=== PATIENT | female | born 1965 | race African-American/Black ===

== ENCOUNTER 2020-10-23 17:05 | Emergency (ER) | payer OTHER ==
[2020-10-23 17:46] LABS: BASOPHIL 0.6 % (0-2); EOSINOPHIL 1.7 % (0-5); HGB 13.3 g/dl (12.5-16.0); LYMPHOCYTE 28.6 % (15-48); MCH 26.5 pg (25.0-31.0); MCHC 30.9 g/dL (32.0-36.0); MCV 85.7 fL (78.0-100.0); MONOCYTE 8.4 % (0-12); MPV 9.8 fL (6.0-9.5); NEUTROPHIL 60.3 % (41-80); NRBC 0; PLT 285 K/uL (150-400); RBC 5.02 M/uL (4.20-5.40); RDW 14.9 % (11.5-14.0); WBC 7.3 K/uL (4.0-10.5)
[2020-10-23 17:53] LABS: ALBUMIN 3.6 g/dL (3.4-5.0); BILIRUBIN - TOTAL 0.5 mg/dL (0.2-1.0); BUN/CREAT RATIO (CALC) 11.6 RATIO; CREATININE 0.95 mg/dL (0.51-0.95); GLOBULIN (CALCULATION) 4.8 g/dL; POTASSIUM 3.6 mmol/L (3.5-5.1); TOTAL PROTEIN 8.4 g/dL (6.4-8.2)
[2020-10-23] MEDS ORDERED: PROTONIX 40MG T40 MG PO (18:48)
== END 2020-10-23 19:00 | disposition home or self-care (01) ==
LOC: FER 17:05
PROVIDERS: Emergency Medicine
DX: R07.89 Other chest pain (principal)
CPT/HCPCS: 36415; 71045; 80053; 84484; 85025; 85730; 93005

== ENCOUNTER 2021-08-16 06:51 | Emergency (ER) | payer OTHER ==
[~2021-08-16 06:51] MED LIST: PROTONIX 40MG T40 MG PO
[2021-08-16] MEDS ORDERED: PERCOCET 7.5/321 TAB PO (10:29)
[2021-08-16] MEDS ORDERED: ONDANSETRON ODT4 MG PO (10:29)
[2021-08-16] MEDS ORDERED: SENOKOT8.6 MG PO (10:29)
== END 2021-08-16 10:46 | disposition home or self-care (01) ==
LOC: FER 06:51
DX: R19.04 Left lower quadrant abdominal swelling, mass and lump (principal); E11.9 Type 2 diabetes mellitus without complications; I10 Essential (primary) hypertension
CPT/HCPCS: J1170